=== PATIENT | male | born 1975 | race Caucasian/White ===

== ENCOUNTER 2020-05-23 16:28 | Day surgery (SDC) | payer OTHER ==
[~2020-05-23] VITALS: Ht 172.7 cm; Wt 75.4 kg
[2020-05-23] MEDS ORDERED: ASPIRIN 325 MG (5 GR) TABLET PO ONE (16:45)
[2020-05-23] MEDS ORDERED: HEParin 1000 UNIT/ML (10ML VIAL) FOR BOLUS ONE ×2 (16:50→17:12)
[2020-05-23] MEDS ORDERED: TICAGRELOR 90 MG TABLET (BRILINTA) PO ONE ×2 (16:50→17:00)
[2020-05-23] MEDS ORDERED: NS IV 1000 ML 1,000 ML IV SCH (16:51)
[2020-05-23 16:52] LABS: WHITE BLOOD COUNT 13.6 10^3/uL (4.3-11.0)
[2020-05-23 16:55] LABS: HEMATOCRIT 44 % (40-54); HEMOGLOBIN 15.2 G/DL (13.3-17.7); MEAN CORPUSCULAR HEMOGLOBIN 31 PG (25-34); MEAN CORPUSCULAR HGB CONC 35 G/DL (32-36); MEAN CORPUSCULAR VOLUME 89 FL (80-99); MEAN PLATELET VOLUME 9.6 FL (7.4-10.4); PLATELET COUNT 379 10^3/uL (130-400)
[2020-05-23 16:56] LABS: BASOPHILS % (AUTO) 1 % (0-10); EOSINOPHILS % (AUTO) 2 % (0-10); LYMPHOCYTES % (AUTO) 46 % (12-44); MONOCYTES % (AUTO) 8 % (0-12)
[2020-05-23 16:57] LABS: NEUTROPHILS % (AUTO) 43 % (42-75)
[2020-05-23] MEDS ORDERED: morphine INJ 10 MG/ML 1ML (SYR OR VIAL) ONE (16:59)
[2020-05-23] MEDS ORDERED: HEParin 1000 UNIT/ML (10ML VIAL) FOR BOLUS IV SCH (17:00)
[2020-05-23 17:02] LABS: BASOPHILS # (AUTO) 0.1 10^3/uL (0.0-0.1); EOSINOPHILS # (AUTO) 0.3 10^3/uL (0.0-0.3); LYMPHOCYTES # (AUTO) 6.4 X 10^3 (1.0-4.0); NEUTROPHILS # (AUTO) 5.8 X 10^3 (1.8-7.8)
--- NOTE | 2020-05-23 17:02 | ED Cardiac General ---
History of Present Illness General Chief Complaint: Chest Pain Stated Complaint: CHEST PAIN History of Present Illness Date Seen by Provider: May 23, 2020 Time Seen by Provider: 14:30 Initial Comments The patient is a 45-year-old male with a history of hypertension, hyperlipidemia, rfy-bnlghgw-vaysrjllf diabetes and tobacco abuse. He has no known cardiac history. He presents for evaluation of acute onset of sharp, severe substernal and left-sided chest discomfort with onset 45 minutes prior to arrival. Discomfort was initially very severe and is only about a 4-5 out of 10 at present. It does not radiate. Patient has never had pain like this before. Associated profuse diaphoresis which began when the chest pain did. Associated nausea. No associated fevers, vomiting, upper respiratory congestion/rhinorrhea, cough, shortness of breath, abdominal pain, flank pain, dysuria or hematuria, changes in bowel habits. EKGs obtained serially are very difficult to interpret secondary to artifact, likely due to the patient's profound diaphoresis. However, they do show developing ST elevation in leads 2, 3 and aVF with reciprocal depressions also seen. Interpretation is acute inferior ST elevation NM. Contact made with Dr. Giacomo rapp who immediately accepts the patient for intervention. Transferring by EMS. Full strength aspirin, Brilinta dose, heparin bolus, morphine given. Hemodynamically stable for transfer. Allergies and Home Medications Allergies Coded Allergies: No Known Drug Allergies (Unverified , 05/23/20) Patient Home Medication List Home Medication List Reviewed: Yes Review of Systems Review of Systems Constitutional: see HPI Past Cqpqgig-Blcbet-Tsgcpm Hx Past Med/Social Hx: Reviewed Nursing Past Med/Soc Hx Family Medical History Reviewed Nursing Family Hx Physical Exam Vital Signs Capillary Refill : Height, Weight, BMI Height: '" Weight: lbs. oz. kg; BMI Method: General Appearance: No Apparent Distress, Mild Distress Other comments This is a middle-aged male appearing pale and diaphoretic. He is alert and oriented 4. Head is normal cephalic and atraumatic. Neck is supple and nontender. Oropharynx is moist. Lungs are clear to auscultation at all stations. There is a normal S1 and S2 without rubs or gallops and capillary refill is appropriate, less than 2 seconds globally. Pulses are equal bilaterally to bilateral upper and lower extremity. Abdomen is soft, nontender and nondistended. Skin is warm and dry without cyanosis, clubbing or edema. Psychiatrically, the patient didn't straights appropriate mood and affect and is alert. Progress/Results/Core Measures Results/Orders Lab Results Laboratory Tests Test 05/23/20 16:40 Range/Units My Orders Orders - VIC ROTH MD Cbc With Automated Diff (05/23/20 16:42) Comprehensive Metabolic Panel (05/23/20 16:42) Troponin I Fs (05/23/20 16:42) Ekg Tracing (05/23/20 16:42) Chest 1 View Ap/Pa Only (05/23/20 16:42) Protime With Inr (05/23/20 16:42) Partial Thromboplastin Time (05/23/20 16:42) Probnp Fs (05/23/20 16:42) Fibrin Degradation Products (05/23/20 16:42) Aspirin Tablet (Aspirin Tablet) (05/23/20 16:45) Ticagrelor Tablet (Brilinta Tablet) (05/23/20 17:00) Heparin (Bolus Per Protocol) (Heparin (B (05/23/20 17:00) Ed Iv/Invasive Line Start (05/23/20 16:51) Ns Iv 1000 Ml (Sodium Chloride 0.9%) (05/23/20 16:51) Ticagrelor Tablet (Brilinta Tablet) (05/23/20 16:50) Heparin (Bolus Per Protocol) (Heparin (B (05/23/20 16:50) Progress Progress Note : Time: 17:02 (Patient is transferring out for immediate catheter lab intervention per Dr. Zhang at [facility].) Critical Care Note Critical Care Start Time: 16:35 Stop Time: 17:03 Departure Impression Primary Impression: Acute ST elevation myocardial infarction (STEMI) of inferior wall Disposition: 09 ADMITTED INPATIENT Condition: Critical VIC ROTH MD May 23, 2020 17:02
--- NOTE | 2020-05-23 17:09 | Diagnostic Imaging Report ---
EXAMINATION: Chest 1 view. HISTORY: Chest pain. Active ST elevation myocardial infarction. COMPARISON: None available. FINDINGS: The lung volumes are normal. No focal consolidation is seen. Scattered patchy opacities are noted in the lungs. No large pleural effusion or pneumothorax is seen. The cardiomediastinal silhouette is normal in size and contour. No acute osseous abnormality is seen. IMPRESSION: Scattered patchy opacities in the lungs, which may represent edema. No focal consolidation or pleural effusion. Dictated by: Dictated on workstation # [id number]
[2020-05-23] MEDS ORDERED: LIDOCAINE 1% INJ 20 ML 20 ML VIAL ONE (17:12)
[2020-05-23] MEDS ORDERED: MIDAZOLAM 5 MG/5 ML (VERSED) VIAL ONE (17:12)
[2020-05-23] MEDS ORDERED: HEParin (CATH LAB) 2,000 ML IV ONE (17:12)
[2020-05-23] MEDS ORDERED: fentaNYL INJECTION 100 MCG/2 ML AMP ONE (17:12)
[2020-05-23] MEDS ORDERED: NS IV 1000 ML 1,000 ML ONE (17:12)
[2020-05-23] MEDS ORDERED: NITRO DRIP 25000 MCG/D5W 250 ML IV ONE (17:12)
[2020-05-23 17:15] LABS: ATYPICAL LYMPHOCYTES 18 %; BAND NEUTROPHILS 1 %; BASOPHILS % (MANUAL) 0 %; EOSINOPHILS % (MANUAL) 4 %; LYMPHOCYTES % (MANUAL) 27 %; MONOCYTES % (MANUAL) 8 %; MYELOCYTES % 1 %; NEUTROPHILS % (MANUAL) 41 %
[2020-05-23 17:16] LABS: RBC MORPH NORMAL
[2020-05-23 17:17] LABS: ALANINE AMINOTRANSFERASE 88 U/L (0-55); ALKALINE PHOSPHATASE 95 U/L (40-136); BILIRUBIN,TOTAL 0.2 MG/DL (0.1-1.0); BUN/CREATININE RATIO 15; CALCIUM 9.3 MG/DL (8.5-10.1); CARBON DIOXIDE 21 MMOL/L (21-32); CHLORIDE 100 MMOL/L (98-107); CREATININE SERUM 0.71 MG/DL (0.60-1.30); GFR ESTIMATED > 60; GLUCOSE 245 MG/DL (70-105); POTASSIUM 3.5 MMOL/L (3.6-5.0); SODIUM 137 MMOL/L (135-145)
[2020-05-23 17:18] LABS: ALBUMIN 4.2 GM/DL (3.2-4.5); TOTAL PROTEIN 7.5 GM/DL (6.4-8.2)
[2020-05-23 17:33] LABS: FIBRIN DEGRADATION PRODUCTS 0.47 UG/ML (0.00-0.49); INR 0.9 (0.8-1.4); PROTHROMBIN TIME PATIENT 12.8 SEC (12.2-14.7)
[2020-05-23] MEDS ORDERED: EPTIFIBATIDE BOLUS 20 ML IV ONE (17:52)
[2020-05-23] MEDS: NS IV 1000 ML 1,000 ML IV SCH ×3 (18:19→22:30)
--- NOTE | 2020-05-23 18:25 | History & Physicial-Cardiolgy ---
HPI-Cardiology Cardiology Consultation: Date of Consultation 05/23/20 Date of Admission Attending Physician Douglas Zhang MD Admitting Physician Consulting Physician Douglas ZHANG MD HPI: Time Seen by a Provider: 18:24 Chief Complaint: Chest pain This is a 45 year old gentleman with history of HTN, lipids, DM and active smoking. Pertinent family history is positive. he presented with sharp substernal severe left-sided chest pain 45 minutes before arrival to the [place] ER. Initially 10 out of 10. Gradually 4 out of 10. Associated with sweating. No other cardiac symptoms. No exacerbating or relieving factors. No radiation. Sharp. Review of Systems-Cardiology Review of Systems Constitutional: As described under HPI; No As described under HPI, No no symptoms reported, No chills, No fever, No lightheadedness Eyes: No As described under HPI, No no symptoms reported, No blindness, No bl urred vision, No contact lenses, No drainage, No decreased acuity, No foreign body sensation, No pain, No vision change Ears/Nose/Throat: No As described under HPI, No no symptoms reported, No chronic hearing loss, No ear discharge, No ear pain, No nasal drainage, No ulcerations Respiratory: No no symptoms reported; As described under HPI; No As described under HPI, No cough, No orthopnea, No shortness of breath, No SOB with excertion Cardiovascular: No no symptoms reported; As described under HPI; No As described under HPI; chest pain; No edema, No irregular heart rate, No lightheadedness, No palpitations Gastrointestinal: No no symptoms reported, No As described under HPI, No abdomen distended, No abdominal pain, No blood streaked bowels, No constipation, No diarrhea, No nausea, No vomiting, No stool coloration changes Genitourinary: No As described under HPI, No burning, No dysuria, No discharge, No frequency, No flank pain, No hematuria, No urgency Skin: No rash, No skin related problems, No ulcerations Psychiatric/Neurological: No anxiety, No depression, No seizure, No focal weakness, No syncope Hematologic: No bleeding abnormalities NUF-Qxkbfu-Cakoxq Hx Patient Social History Recent Foreign Travel: No Recent Infectious Disease Expo: No Past Medical History PMH As described under Assessment. Allergies and Home Medications Allergies Coded Allergies: No Known Drug Allergies (Unverified , 05/23/20) Patient Home Medication List Home Medication List Reviewed: Yes Physical Exam-Cardiology Physical Exam Vital Signs/I&O 05/23/20 16:30 Temp 36.8 Pulse 66 Resp 22 B/P (MAP) 102/69 (80) Pulse Ox 99 Capillary Refill : Less Than 3 Seconds Constitutional: appears stated age, AAO x 3; No apparent distress; well- developed, well-nourished HEENT: PERRL; No discharge; hearing is well preserved, oral hygience is good; No ulceration, No xanthelasmas are seen Neck: No carotid bruit; carotid pulses are 2 + bilaterally Respiratory: chest is bilaterally symmetric, lungs clear to auscultation Cardiovascular: regular rate-rhythm, S1 and S2 Gastrointestinal: soft, audible bowel sounds; No spleenomegaly Rectal: deferred Extremities: normal range of motion, non-tender, normal inspection; No clu bbing, No cyanosis; no lower extremity edema bilateral; No significant edema Neurologic/Psychiatric: no motor/sensory deficits, alert, normal mood/affect, oriented x 3, power is 5/5 both on sides Skin: normal color, warm/dry; No rash, No ulcerations Data Review Labs Laboratory Tests 05/23/20 16:40: White Blood Count 13.6H, Red Blood Count 4.92, Hemoglobin 15.2, Hematocrit 44, Mean Corpuscular Volume 89, Mean Corpuscular Hemoglobin 31, Mean Corpuscular Hemoglobin Concent 35, Red Cell Distribution Width 12.6, Platelet Count 379, Mean Platelet Volume 9.6, Neutrophils (%) (Auto) 43, Lymphocytes (%) (Auto) 46H, Monocytes (%) (Auto) 8, Eosinophils (%) (Auto) 2, Basophils (%) (Auto) 1, Neutrophils # (Auto) 5.8, Lymphocytes # (Auto) 6.4H, Monocytes # (Auto) 1.0, E osinophils # (Auto) 0.3, Basophils # (Auto) 0.1, Neutrophils % (Manual) 41, Lymphocytes % (Manual) 27, Monocytes % (Manual) 8, Eosinophils % (Manual) 4, Basophils % (Manual) 0, Myelocytes % 1, Band Neutrophils 1, Atypical Lymphocytes 18, Blood Morphology Comment NORMAL, Prothrombin Time 12.8, INR Comment 0.9, Activated Partial Thromboplast Time 25, D-Dimer 0.47, Sodium Level 137, Potassium Level 3.5L, Chloride Level 100, Carbon Dioxide Level 21, Anion Gap 16H , Blood Urea Nitrogen 11, Creatinine 0.71, Estimat Glomerular Filtration Rate > 60, BUN/Creatinine Ratio 15, Glucose Level 245H, Calcium Level 9.3, Corrected Calcium 9.1, Total Bilirubin 0.2, Aspartate Amino Transf (AST/SGOT) 28, Alanine Aminotransferase (ALT/SGPT) 88H, Alkaline Phosphatase 95, Troponin I < 0.30, Pro-B-Type Natriuretic Peptide 133.5H, Total Protein 7.5, Albumin 4.2 05/23/20 16:41: Glucometer 242H ECG Impression ECG Initial ECG Rhythm: Normal Sinus Initial ECG Impression: Acute MD A/P-Cardiology Assessment/Admission Diagnosis acute inferior STEMI, Diabetes, Hypertension, Hyperlipidemia, Active smoking. Admission Status: Inpatient Order (span 2 midnights) Reason for Inpatient Admission: acute STEMI Plan emergent primary PCI is recommended. Aspirin, Brilinta bolus. IV heparin 5000 international units. Smoking cessation was strongly recommended. Hypertension: Beta sayra and lisinopril. Hyperlipidemia: High-dose statin therapy. Diabetes: We will request medicine consultation. Douglas ZHANG MD May 23, 2020 18:24
[2020-05-23] MEDS ORDERED: PATIENT MAY USE OWN MEDS, ALL PO SCH (18:30)
--- NOTE | 2020-05-23 18:30 | Coronary Angiography & PCI ---
Coronary Angiography & PCI DATE OF PROCEDURE: 05/23/20 INDICATION: acute inferior STEMI. PREOPERATIVE DIAGNOSIS: acute inferior STEMI. POSTOPERATIVE DIAGNOSIS: primary PCI to the proximal RCA. HISTORY: 45-year-old male with diabetes, hypertension, hyperlipidemia, active smoking with severe chest pain. Inferior ST elevation.Therefore, the patient was scheduled for coronary angiography. PROCEDURES PERFORMED: 1.Coronary angiography. 2.Left heart catheterization. 3.PCI to the proximal RCA with drug-eluting stent. COMPLICATIONS: None. SPECIMENS: None. ESTIMATED BLOOD LOSS: 10 mL ANESTHESIA: Conscious sedation ANTICOAGULATION: IV heparin CONTRAST: 109 mL. FLUOROSCOPY: 6.2 minutes. FLOUROSCOPY DOSE: 841 mgy. PROCEDURE DETAILS: The patient is a 45 male and was brought to the industrial laborer after informed consent was taken. All the risks and complications were explained in detail; this included the risk of bleeding, vascular damage, stroke, NV and even . The patient was draped and prepped in the usual sterile fashion. Access was gained in the right femoral artery with a 6 [place] sheath. Right cor onary angiography was performed with the JR4 guide catheter, left coronary angiography was performed with a JL4 catheter, left heart catheterization was performed With the pigtail catheter. FINDINGS: 1.Left main: patent. 2.LAD: mild luminal irregularities. 3.Left circumflex artery: moderate disease in OM 2. Severe disease in a small AV groove artery. 4.RCA: severe acute stenosis of the proximal RCA. Stenosis severity 99 percent. 5.Left heart catheterization: LV pressure 108/2 mmHg. LVEDP 22 mmHg. Aortic pressure 108/66 mmHg. Normal LV function with no significant wall motion abnormalities. No gradient across the aortic valve. RECOMMENDATIONS: primary PCI to the proximal RCA is recommended. INTERVENTION DETAILS: patient received aspirin, Brilinta bolus, 5000 units of heparin in the ER. We went in with a JR4 guide catheter, whisper extra-support guidewire, 2.0 x 12 mm emerge balloon. The lesion was crossed with the whisper wire and the tip was placed in the distal RCA. Initial dilatation was done at 8 nestor for 9 seconds. Patient presented to our hospital at 5:38 p.m. Initial balloon inflation at 5:50 p.m. Door to balloon time 12 minutes. second balloon inflation done at 12 nestor for 23 seconds. We then took a science Patrica 3.5 x 33 mm drug-eluting stent and placed it in the proximal RCA at 14 nestor for 17 seconds. We then took an NC Quantum 4.0 x 20 mm balloon and performed 3 inflation from distal to proximal. First inflation for 18 nestor for 30 seconds, second inflation for 18 nestor for 31 seconds and third inflation for 12 nestor for 30 seconds. No residual stenosis with DIONNE-3 flow. Wire and balloon taken out. Final pictures showed excellent results. minx closure of the right femoral artery. Patient tolerated the procedure well and did not have any complications. Patient was sent to the ICU with stable hemodynamics. CONCLUSIONS: 1. acute inferior STEMI, primary PCI to the proximal RCA with drug-eluting stent. Door to balloon time of 12 minutes. 2. Dual antiplatelet therapy for at least 1 year. 3. Smoking cessation was strongly recommended. Rika Zhang MD, FACP, FACC, [facility] Interventional Cardiology Douglas ZHANG MD May 23, 2020 18:30
[2020-05-23] MEDS ORDERED: lisINopril 5 MG (PRINIVIL) TABLET PO ONE (18:45)
[2020-05-23] MEDS ORDERED: lisINopril 10 MG (PRINIVIL) TABLET ONE (18:54)
[2020-05-23 19:00] VITALS: BP 114/71
[2020-05-23 20:00] VITALS: BP 116/73
[2020-05-23 20:23] VITALS: BP 109/70
[2020-05-23 21:00] VITALS: BP 121/79
[2020-05-23 22:00] VITALS: BP 103/65
[2020-05-23 23:00] VITALS: BP 107/63
[2020-05-24] VITALS (13 sets, daily range): BP systolic 103–133; BP diastolic 63–84
[2020-05-24] MEDS: meTOprolol TARTRATE 25 MG (LOPRESSOR) TABLET PO SCH ×3 (00:21→20:24)
[2020-05-24 03:31] LABS: BASOPHILS # (AUTO) 0.1 10^3/uL (0.0-0.1); BASOPHILS % (AUTO) 1 % (0-10); EOSINOPHILS # (AUTO) 0.2 10^3/uL (0.0-0.3); EOSINOPHILS % (AUTO) 2 % (0-10); HEMATOCRIT 37 % (40-54); HEMOGLOBIN 12.9 G/DL (13.3-17.7); LYMPHOCYTES # (AUTO) 3.1 X 10^3 (1.0-4.0); LYMPHOCYTES % (AUTO) 36 % (12-44); MEAN CORPUSCULAR HEMOGLOBIN 31 PG (25-34); MEAN CORPUSCULAR HGB CONC 35 G/DL (32-36); MEAN CORPUSCULAR VOLUME 90 FL (80-99); MEAN PLATELET VOLUME 9.7 FL (7.4-10.4); MONOCYTES # (AUTO) 0.8 X 10^3 (0.0-1.0); MONOCYTES % (AUTO) 9 % (0-12); NEUTROPHILS # (AUTO) 4.4 X 10^3 (1.8-7.8); NEUTROPHILS % (AUTO) 52 % (42-75); PLATELET COUNT 229 10^3/uL (130-400); WHITE BLOOD COUNT 8.5 10^3/uL (4.3-11.0)
[2020-05-24 03:47] LABS: CHLORIDE 109 MMOL/L (98-107); POTASSIUM 3.5 MMOL/L (3.6-5.0); SODIUM 138 MMOL/L (135-145)
[2020-05-24 03:48] LABS: CALCIUM 8.2 MG/DL (8.5-10.1)
[2020-05-24 03:49] LABS: GLUCOSE 231 MG/DL (70-105); TRIGLYCERIDES 339 MG/DL (<150); VLDL CHOLESTEROL 68 MG/DL (5-40)
[2020-05-24 03:50] LABS: CARBON DIOXIDE 20 MMOL/L (21-32)
[2020-05-24 03:52] LABS: PHOSPHORUS 2.8 MG/DL (2.3-4.7)
[2020-05-24 03:53] LABS: CREATININE SERUM 0.78 MG/DL (0.60-1.30); GFR ESTIMATED > 60
[2020-05-24 03:54] LABS: BUN/CREATININE RATIO 15; CHOLESTEROL 141 MG/DL (< 200)
[2020-05-24 03:55] LABS: HDL CHOLESTEROL 20 MG/DL (40-60)
[2020-05-24] MEDS: NS IV 1000 ML 1,000 ML IV SCH (04:38)
[2020-05-24] MEDS: POTASSIUM CL 10MEQ/50ML IVPB 50 ML IV SCH (06:59)
[2020-05-24] MEDS: KCL 20 MEQ TAB (K-DUR) PO SCH (06:59)
[2020-05-24] MEDS: MAGNESIUM 1 GM/100 ML IVPB 100 ML IV SCH (06:59)
[2020-05-24] MEDS ORDERED: KCL 20 MEQ TAB (K-DUR) PO ONE (07:00)
[2020-05-24] MEDS: ASPIRIN E.C. 81 MG (ECOTRIN) TAB PO SCH (07:58)
[2020-05-24] MEDS: TICAGRELOR 90 MG TABLET (BRILINTA) PO SCH ×2 (07:58→20:24)
[2020-05-24] MEDS: lisINopril 5 MG (PRINIVIL) TABLET PO SCH (07:59)
[2020-05-24] MEDS ORDERED: CLOPIDOGREL 75 MG (PLAVIX) TABLET PO SCH (09:00)
[2020-05-24] MEDS ORDERED: inSUlin ASPART (NovoLOG) 1 UNIT/0.01 ML (CHARGE PER UNIT) ONE (11:19)
[2020-05-24] MEDS: inSUlin ASPART (NovoLOG) 1 UNIT/0.01 ML (CHARGE PER UNIT) SC SCH ×3 (11:24→20:24)
--- NOTE | 2020-05-24 14:50 | Cardiology Progress Note ---
Cardiology SOAP Progress Note Subjective: No cardiac complaints. Objective: I&O/Vital Signs 05/24/20 05/24/20 05/24/20 05/24/20 03:00 04:00 04:00 05:00 Pulse 57 57 55 Resp 18 16 12 B/P (MAP) 115/75 (88) 110/73 (85) 114/71 (85) Pulse Ox 96 96 96 98 O2 Delivery Room Air Room Air Room Air Room Air 05/24/20 05/24/20 05/24/20 05/24/20 06:00 07:00 07:02 07:27 Temp 37.1 Pulse 60 69 72 Resp 17 17 B/P (MAP) 112/70 (84) 117/76 (90) Pulse Ox 96 96 O2 Delivery Room Air Room Air 05/24/20 05/24/20 05/24/20 05/24/20 08:00 08:00 09:00 10:00 Pulse 66 63 60 Resp 21 B/P (MAP) 119/75 (90) Pulse Ox 95 95 O2 Delivery Room Air Room Air Room Air Room Air 05/24/20 05/24/20 05/24/20 05/24/20 11:00 11:16 11:30 13:42 Temp 36.8 Pulse 59 72 69 B/P (MAP) 116/74 (88) O2 Delivery Room Air Room Air 05/24/20 00:00 Intake Total 1500 ml Output Total 450 ml Balance 1050 ml Constitutional: appears stated age, AAO x 3; No apparent distress; well- developed, well-nourished Respiratory: chest is bilaterally symmetric, lungs clear to auscultation Cardiovascular: regular rate-rhythm, S1 and S2 Gastrointestional: soft, audible bowel sounds; No spleenomegaly Extremities: normal range of motion, non-tender, normal inspection; No clubbing, No cyanosis; no lower extremity edema bilateral; No significant edema Neurologic/Psychiatric: no motor/sensory deficits, alert, normal mood/affect, oriented x 3, power is 5/5 both on sides Skin: normal color, warm/dry; No rash, No ulcerations Results/Procedures: Labs Laboratory Tests 05/23/20 16:40: White Blood Count 13.6H, Red Blood Count 4.92, Hemoglobin 15.2, Hematocrit 44, Mean Corpuscular Volume 89, Mean Corpuscular Hemoglobin 31, Mean Corpuscular Hemoglobin Concent 35, Red Cell Distribution Width 12.6, Platelet Count 379, Mean Platelet Volume 9.6, Neutrophils (%) (Auto) 43, Lymphocytes (%) (Auto) 46H, Monocytes (%) (Auto) 8, Eosinophils (%) (Auto) 2, Basophils (%) (Auto) 1, Neutrophils # (Auto) 5.8, Lymphocytes # (Auto) 6.4H, Monocytes # (Auto) 1.0, Eosinophils # (Auto) 0.3, Basophils # (Auto) 0.1, Neutrophils % (Manual) 41, Lymphocytes % (Manual) 27, Monocytes % (Manual) 8, Eosinophils % (Manual) 4, Basophils % (Manual) 0, Myelocytes % 1, Band Neutrophils 1, Atypical Lymphocytes 18, Blood Morphology Comment NORMAL, Prothrombin Time 12.8, INR Comment 0.9, Activated Partial Thromboplast Time 25, D-Dimer 0.47, Sodium Level 137, Potassium Level 3.5L, Chloride Level 100, Carbon Dioxide Level 21, Anion Gap 16H , Blood Urea Nitrogen 11, Creatinine 0.71, Estimat Glomerular Filtration Rate > 60, BUN/Creatinine Ratio 15, Glucose Level 245H, Calcium Level 9.3, Corrected Calcium 9.1, Total Bilirubin 0.2, Aspartate Amino Transf (AST/SGOT) 28, Alanine Aminotransferase (ALT/SGPT) 88H, Alkaline Phosphatase 95, Troponin I < 0.30, Pro-B-Type Natriuretic Peptide 133.5H, Total Protein 7.5, Albumin 4.2 05/23/20 16:41: Glucometer 242H 05/23/20 19:16: Troponin I 0.099H 05/23/20 21:19: Glucometer 218H 05/24/20 03:13: White Blood Count 8.5, Red Blood Count 4.16L, Hemoglobin 12.9L, Hematocrit 37L, Mean Corpuscular Volume 90, Mean Corpuscular Hemoglobin 31, Mean Corpuscular Hemoglobin Concent 35, Red Cell Distribution Width 13.0, Platelet Count 229, Mean Platelet Volume 9.7, Neutrophils (%) (Auto) 52, Lymphocytes (%) (Auto) 36, Monocytes (%) (Auto) 9, Eosinophils (%) (Auto) 2, Basophils (%) (Auto) 1, Neutrophils # (Auto) 4.4, Lymphocytes # (Auto) 3.1, Monocytes # (Auto) 0.8, Eosinophils # (Auto) 0.2, Basophils # (Auto) 0.1, Sodium Level 138, Potassium Level 3.5L, Chloride Level 109H, Carbon Dioxide Level 20L, Anion Gap 9, Blood Urea Nitrogen 12, Creatinine 0.78, Estimat Glomerular Filtration Rate > 60, BUN/Creatinine Ratio 15, Glucose Level 231H, Calcium Level 8.2L, Phosphorus Level 2.8, Magnesium Level 2.0, Troponin I 0.507*H, Triglycerides Level 339H, Cholesterol Level 141, LDL Cholesterol Direct 86, VLDL Cholesterol 68H, HDL Cholesterol 20L 05/24/20 11:15: Glucometer 240H A/P: Assessment/Dx: acute inferior STEMI, Diabetes, Hypertension, Hyperlipidemia, Active smoking. Plan: Inferior STEMI 05/23/2020. Primary PCI to proximal RCA with drug-eluting stent. Aspirin, Brilinta. Smoking cessation was strongly recommended. Hypertension: Beta sayra and lisinopril. Hyperlipidemia: High-dose statin therapy. Diabetes: We will request medicine consultation. Thank you for your consultation. Please call me if you have any questions. Rika Zhang MD, FACP, FACC, FSCAI, FHRS, CCDS Interventional Cardiology Cardiac Electrophysiology Vascular Medicine and Endovascular Interventions Clinical Quality Measures AMI/AHF: ASA po Prior to arrival: Douglas Lujan MD May 24, 2020 14:50
[2020-05-25 04:31] LABS: BASOPHILS % (AUTO) 0 % (0-10); EOSINOPHILS # (AUTO) 0.2 10^3/uL (0.0-0.3); EOSINOPHILS % (AUTO) 2 % (0-10); HEMATOCRIT 39 % (40-54); HEMOGLOBIN 13.4 G/DL (13.3-17.7); LYMPHOCYTES # (AUTO) 3.1 X 10^3 (1.0-4.0); LYMPHOCYTES % (AUTO) 38 % (12-44); MEAN CORPUSCULAR HEMOGLOBIN 31 PG (25-34); MEAN CORPUSCULAR HGB CONC 34 G/DL (32-36); MEAN CORPUSCULAR VOLUME 90 FL (80-99); MEAN PLATELET VOLUME 9.9 FL (7.4-10.4); MONOCYTES # (AUTO) 0.6 X 10^3 (0.0-1.0); MONOCYTES % (AUTO) 8 % (0-12); NEUTROPHILS # (AUTO) 4.4 X 10^3 (1.8-7.8); NEUTROPHILS % (AUTO) 53 % (42-75); PLATELET COUNT 197 10^3/uL (130-400); WHITE BLOOD COUNT 8.4 10^3/uL (4.3-11.0)
[2020-05-25 04:45] VITALS: BP 107/67
[2020-05-25 04:47] LABS: CHLORIDE 106 MMOL/L (98-107); POTASSIUM 3.8 MMOL/L (3.6-5.0); SODIUM 137 MMOL/L (135-145)
[2020-05-25 04:48] LABS: CALCIUM 8.5 MG/DL (8.5-10.1); GLUCOSE 220 MG/DL (70-105)
[2020-05-25 04:50] LABS: CARBON DIOXIDE 21 MMOL/L (21-32)
[2020-05-25 04:52] LABS: CREATININE SERUM 0.85 MG/DL (0.60-1.30); GFR ESTIMATED > 60
[2020-05-25 04:53] LABS: BUN/CREATININE RATIO 16
[2020-05-25] MEDS: inSUlin ASPART (NovoLOG) 1 UNIT/0.01 ML (CHARGE PER UNIT) SC SCH ×2 (05:57→12:12)
[2020-05-25] MEDS: KCL 20 MEQ TAB (K-DUR) PO SCH (06:26)
[2020-05-25] MEDS: POTASSIUM CL 10MEQ/50ML IVPB 50 ML IV SCH (06:26)
[2020-05-25] MEDS: MAGNESIUM 1 GM/100 ML IVPB 100 ML IV SCH (06:26)
[2020-05-25 07:54] VITALS: BP 115/72
[2020-05-25] MEDS: lisINopril 5 MG (PRINIVIL) TABLET PO SCH (09:06)
[2020-05-25] MEDS: meTOprolol TARTRATE 25 MG (LOPRESSOR) TABLET PO SCH (09:06)
[2020-05-25] MEDS: ASPIRIN E.C. 81 MG (ECOTRIN) TAB PO SCH (09:07)
[2020-05-25] MEDS: TICAGRELOR 90 MG TABLET (BRILINTA) PO SCH (09:07)
--- NOTE | 2020-05-25 09:50 | Consultation - Hospitalist ---
HPI History of Present Illness: HPI/Chief Complaint patient is a 45-year-old male with past medical history of hypertension, hyperlipidemia, diabetes, and tobacco abuse who presented to the emergency department due to chest pain. He presented to the [place] ER with a 45 minute history of chest pain. EKG was done revealed a STEMI. He was e mergently transferred here for intervention. he had PCI done to the RCA. I am consulted for medical management. This morning he reports he is doing very well. He has no complaints. He is requesting discharge home. He does state that he smokes 2 packs per day but he is committed to getting. He has a history of diabetes and he states his primary nurse practitioner would like him to be on insulin but he has not started that yet. He is unsure what his last A1c was. Source: patient Date Seen 05/25/20 Attending Physician Douglas Zhang MD PCP Referring Physician Date of Admission Home Medications & Allergies Home Medications Reviewed patient Home Medication Reconciliation performed by pharmacy medication reconciliations extrusion technician and/or nursing. Patients Allergies have been reviewed. Allergies Allergies Coded Allergies No Known Drug Allergies (Unverified05/23/20) Past Ydqxpnk-Ixdxud-Beitvc Hx Past Med/Social Hx: Reviewed Nursing Past Med/Soc Hx Patient Social History Alcohol Use: Denies Use Recreational Drug Use: No Smoking Status: Current Everyday Smoker Cigaretts per day: 40 Type Used: Cigarettes 2nd Hand Smoke Exposure: Yes Recent Foreign Travel: No Contact w/other who traveled: No Recent Hopitalizations: No Recent Infectious Disease Expo: No Seasonal Allergies Seasonal Allergies: No Past Medical History Cardiac: High Cholesterol, Hypertension Endocrine: Diabetes, Non-Insulin dep Family History Reviewed Nursing Family Hx No Pertinent Family Hx Review of Systems Constitutional: No chills, No fever EENTM: no symptoms reported Respiratory: No cough, No dyspnea on exertion Cardiovascular: see HPI, chest pain Gastrointestinal: No abdominal pain, No constipation, No nausea, No vomiting Genitourinary: no symptoms reported Musculoskeletal: no symptoms reported Skin: no symptoms reported Psychiatric/Neurological: No Symptoms Reported Physical Exam Physical Exam Vital Signs Vital Signs - First Documented 05/23/20 05/23/20 16:30 17:03 Temp 36.8 Pulse 66 Resp 22 B/P (MAP) 102/69 (80) Pulse Ox 99 O2 Delivery Nasal Cannula O2 Flow Rate 2.00 Capillary Refill : Less Than 3 Seconds Height, Weight, BMI Height: '" Weight: lbs. oz. kg; 27.42 BMI Method: General Appearance: No Apparent Distress HEENT: PERRL/EOMI, Moist Mucous Membranes Neck: Normal Inspection, Supple Cardiovascular: Regular Rate, Rhythm, No Murmur, Normal Peripheral Pulses Gastrointestinal: Normal Bowel Sounds, Non Tender, Soft Extremity: Normal Capillary Refill, No Calf Tenderness, No Pedal Edema Neurologic/Psychiatric: Alert, Oriented x3, Normal Mood/Affect Skin: Normal Color, Warm/Dry Results Results/Procedures Labs Laboratory Tests 05/23/20 16:40 05/24/20 03:13 05/25/20 04:00 Patient resulted labs reviewed. Imaging: Reviewed Imaging Report Imaging [facility] [place] NAME: ELIZABETH HARTLEY [facility] REC#: [id number] PT STATUS: REG ER : 1975 PHYSICIAN: VIC ROTH MD ADMIT DATE: 05/23/20/ER FS Signed Date of Exam:05/23/20 CHEST 1 VIEW AP/PA ONLY EXAMINATION: Chest 1 view. HISTORY: Chest pain. Active ST elevation myocardial infarction. COMPARISON: None available. FINDINGS: The lung volumes are normal. No focal consolidation is seen. Scattered patchy opacities are noted in the lungs. No large pleural effusion or pneumothorax is seen. The cardiomediastinal silhouette is normal in size and contour. No acute osseous abnormality is seen. IMPRESSION: Scattered patchy opacities in the lungs, which may represent edema. No focal consolidation or pleural effusion. Dictated by: Dictated on workstation # [id number] Dict: 05/23/201705 Trans: 05/23/201707 [facility] [id number] Interpreted by: GERRI HO DO Electronically signed by: GERRI HO DO 05/23/208 Assessment/Plan Assessment and Plan Assess & Plan/Chief Complaint STEMI HTN HLD s/p PCI management per primary Continue DAPT Continue statin NIDDMII Fasting Blood sugar is 220 Unsure of last A1c Continue metformin at home Follow up with AIRCRAFT STRUCTURAL FITTER Will follow prn Diagnosis/Problems Diagnosis/Problems (1) Acute ST elevation myocardial infarction (STEMI) of inferior wall Status: Acute (2) Non-insulin dependent type 2 diabetes mellitus Status: Chronic (3) CAD (coronary artery disease) Status: Acute Qualifiers: Coronary Disease-Associated Artery/Lesion type: [place] artery [place] vs. transplanted heart: [place] heart Associated angina: without angina Qualified Codes: I25.10 - Atherosclerotic heart disease of [place] coronary artery without angina pectoris (4) Hypertension Status: Chronic Qualifiers: Hypertension type: essential hypertension Qualified Codes: I10 - Essential (primary) hypertension (5) Hyperlipidemia Status: Chronic Qualifiers: Hyperlipidemia type: other hyperlipidemia Qualified Codes: E78.49 - Other hyperlipidemia (6) Tobacco abuse Status: Acute Clinical Quality Measures AMI/AHF: ASA po Prior to arrival: No DVT/VTE Risk/Contraindication: Risk Factor Score Per Nursin RFS Level Per Nursing on Admit: 4+=Very High LIZ LATIF MD May 25, 2020 09:50
[2020-05-25 12:00] VITALS: BP 120/73
[2020-05-25] MEDS ORDERED: OMEP40CA27 PO (12:36)
[2020-05-25] MEDS ORDERED: OMEG-160 PO (12:36)
[2020-05-25] MEDS ORDERED: METF-397 PO (12:36)
[2020-05-25] MEDS ORDERED: FLUO40CA PO (12:36)
[2020-05-25] MEDS ORDERED: LISI10TA2 PO (12:36)
[2020-05-25] MEDS ORDERED: GEMF600T8 PO (12:36)
--- NOTE | 2020-05-25 13:05 | NUR ---
DR OZUNA NOTIFIED THIS NURSE PT IS OKAY TO DC. THIS NURSE CLARIFIED WHICH HOME MEDICATIONS DR OZUNA WOULD LIKE TO RESUME. DR OZUNA ALSO GAVE TELEPHONE ORDERS FROM NEW PRESCRIPTIONS. PT IS FOLLOW UP IN [address] OZUNA. THIS NURSE MADE AN APPOINTMENT FOR THE PT. THIS NURSE ALSO NOTIFIED DR LATIF PT IS TO GO HOME.
[2020-05-25] MEDS ORDERED: ASPI-1238 PO (13:18)
[2020-05-25] MEDS ORDERED: METO-333 PO (13:18)
[2020-05-25] MEDS ORDERED: TICA90TA PO (13:18)
[2020-05-25] MEDS ORDERED: ATOR80TA76 PO (13:18)
--- NOTE | 2020-05-25 13:39 | NUR ---
SPOKE WITH THE PT AND WENT THRU THE EXT MED HISTORY TO COMPLETE THE MED REC METFORMIN 500MG- THE DIRECTIONS ARE 2 TABS BID HOWEVER THE PT ONLY TAKES 2 TABS DAILY GEMFIBROZIL 600MG- DIRECTIONS ARE 1 TAB BID HOWEVER PT JUST TAKES 1 TAB DAILY OTC MEDS: FISH OIL
--- NOTE | 2020-05-25 14:15 | NUR ---
THIS NURSE EDUCATED PT ON DISCHARGE INSTRUCTIONS AND HOME MEDICATIONS. PT STATED UNDERSTANDING. PT CALLED FRIEND FOR RIDE.
[2020-05-25 15:45] VITALS: BP 120/73
--- NOTE | 2020-05-25 15:49 | Cardiology Discharge Summary ---
Diagnosis/Chief Complaint Date of Admission 05/23/2020 Date of Discharge 05/25/2020 Admission Diagnosis Acute inferior STEMI Final/Discharge Diagnosis Successful primary PCI to the proximal RCA Chief Complaint/HPI Chief Complaint/HPI This is a 45 year old gentleman with history of HTN, lipids, DM and active smoking. Pertinent family history is positive. he presented with sharp subste rnal severe left-sided chest pain 45 minutes before arrival to the [place] [facility]. Initially 10 out of 10. Gradually 4 out of 10. Associated with sweating. No other cardiac symptoms. No exacerbating or relieving factors. No radiation. Sharp. Discharge Summary Procedures Primary PCI to the proximal RCA with drug-eluting stent. Discharge Physical Examination Normal cardiovascular examination. Hospital Course Was the Problem List Reviewed?: Yes Unremarkable. Pending Labs Laboratory Tests 05/25/20 10:51: Glucometer 213 Discussion & Recommendations Discussion Discharge took over 30 minutes to complete. I discussed at length with the patient about smoking cessation. All medications were discussed. Importance of Brilinta was discussed. Patient will follow up in office in 2 weeks. Follow up appt.: Dr. Zhang in 2 weeks. Dicharge Diet: Cardiac Diet Activity as Tolerated: Yes Home Medications Reviewed patient Home Medication Reconciliation performed by pharmacy medication reconciliations plant facilities technician and/or nursing. Patients Allergies have been reviewed. Discharge Home Medications: Reviewed and agree with Discharge Medication list on patient's Discharge Instruction sheet Condition at discharge Stable. Instructions to patient/family Discussed at length with the patient. Clinical Quality Measures AMI/AHF: ASA po Prior to arrival: No DVT/VTE Risk/Contraindication: Risk Factor Score Per Nursin RFS Level Per Nursing on Admit: 4+=Very High Douglas ZHANG MD May 25, 2020 15:49
== END 2020-05-25 15:45 | disposition home or self-care (01) ==
LOC: ER FS 16:29 → CATH 17:12 → ICU 18:32 → CSD 05-24 13:45 → CATH 05-25 15:45
PROVIDERS: ATTEND Internal Medicine Interventional Cardiology
DX: I21.19 ST elevation (STEMI) myocardial infarction involving other coronary artery of inferior wall (principal); I10 Essential (primary) hypertension; E78.5 Hyperlipidemia, unspecified; E11.9 Type 2 diabetes mellitus without complications; F17.210 Nicotine dependence, cigarettes, uncomplicated; E78.00 Pure hypercholesterolemia, unspecified; I25.10 Atherosclerotic heart disease of native coronary artery without angina pectoris; I36.1 Nonrheumatic tricuspid (valve) insufficiency; Z79.899 Other long term (current) drug therapy
CPT/HCPCS: 36415; 71045; 80048; 80053; 82962 ×2; 83880; 84484 ×2; 85007; 85025; 85027; 85347; 85379; 85610; 85730; 93005 ×2; 93306; 93458; 99285; C1725 ×2; C1760; C1769; C1874; C1887; C1894; C9606

== ENCOUNTER → 2020-11-16 | Outpatient (CLI) | payer OTHER, MEDICAID ==
[~2020-11-16] MED LIST: ASPI-1238 PO; ATOR80TA76 PO; FLUO40CA PO; GEMF600T88 PO; LISI10TA25 PO; METF-397 PO; METO-333 PO; OMEG-160 PO; OMEP40CA27 PO; TICA90TA PO
== END ==
LOC: CARD 13:30
PROVIDERS: ATTEND Internal Medicine Cardiovascular Disease
DX: I25.10 Atherosclerotic heart disease of native coronary artery without angina pectoris (principal)
CPT/HCPCS: 93306; 93351

== ENCOUNTER → 2022-12-19 | Outpatient (CLI) | payer MEDICAID ==
[~2022-12-19] MED LIST changes: -OMEP40CA27 PO; +OMEP40CA6 PO; +REGADENOSON 0.4 MG/5 ML SYR (LEXISCAN) IV ONE
[2022-12-19 13:04] VITALS: BP 122/75
--- NOTE | 2022-12-19 17:30 | STRESS TEST ---
DATE OF SERVICE: 12/19/2022 RESTING AND POST REGADENOSON TECHNETIUM-99M TETROFOSMIN SPECT CT IMAGING ORDERING PHYSICIAN: Marta Welsh APRN CLINICAL DIAGNOSIS: Coronary artery disease. Baseline images were carried out after injection of 10.46 mCi of technetium-99m tetrofosmin. This was followed by 0.4 mg regadenoson and 30.7 mCi of technetium-99m tetrofosmin for stress imaging. The electrocardiogram showed sinus rhythm at baseline. It did not change significantly with regadenoson infusion. The patient noted some shortness of breath and a headache following regadenoson infusion, which resolved in a few minutes. Review of images at rest and following stress shows diminished count uptake in the inferior wall, both at rest and following regadenoson infusion. This appears to be due to diaphragmatic attenuation. Gated images show normal global left ventricular systolic function with normal regional wall motion, including the inferior wall of the left ventricle. Left ventricular ejection fraction is calculated to be 61%. CONCLUSIONS: 1. No distinct evidence of significant myocardial ischemia or infarction in the study. 2. Normal regional wall motions. 3. Normal global left ventricular systolic function with a calculated ejection fraction of 61%. Job ID: [id number] DocumentID: [id number] Dictated Date: 12/19/2022 17:16:12 Aeroplane Pilot Date: 12/19/2022 17:28:00 Dictated By: YUNIOR CAIN MD; PATRICIA; FACP; FACC;
== END ==
LOC: CARD 11:02
PROVIDERS: ATTEND Nurse Practitioner Family
DX: I25.10 Atherosclerotic heart disease of native coronary artery without angina pectoris (principal)
CPT/HCPCS: 78452; 93017